=== PATIENT | female | born 1950 | race Caucasian/White ===

== ENCOUNTER 2018-12-19 13:14 | Outpatient (CLI) | payer MEDICARE, OTHER ==
--- NOTE | 2018-12-19 15:04 | MMO ---
Bilateral MAMMO Bilat Screen [facility]. CLINICAL HISTORY: Patient is 68 years old and is seen for screening. The patient has no family history of breast cancer. The patient has no personal history of cancer. VIEWS: The views performed were: bilateral craniocaudal with tomosynthesis and bilateral mediolateral oblique with tomosynthesis. FILMS COMPARED: The present examination has been compared to prior imaging studies performed at [facility] on 10/30/2014, 11/05/2015, 11/10/2016 and 11/11/2017. MAMMOGRAM FINDINGS: There are scattered fibroglandular densities. There are no suspicious masses, suspicious calcifications, or new areas of architectural distortion. IMPRESSION: THERE IS NO MAMMOGRAPHIC EVIDENCE OF MALIGNANCY. A ROUTINE FOLLOW-UP MAMMOGRAM IN 1 YEAR IS RECOMMENDED. THE RESULTS OF THIS EXAM WERE SENT TO THE PATIENT. ACR BI-RADS Category 1 - Negative MAMMOGRAPHY NOTE: 1. A negative mammogram report should not delay a biopsy if a dominant of clinically suspicious mass is present. 2. Approximately 10% to 15% of breast cancers are not detected by mammography. 3. Adenosis and dense breasts may obscure an underlying neoplasm.
--- NOTE | 2018-12-19 15:48 | BD ---
DEXA BONE DENSITY: HISTORY: Postmenopausal female. Screening study. COMPARISON: Prior is not available. FINDINGS: LUMBAR SPINE BMD (g/cm2) T-SCORE Z-SCORE L1 1.056 0.6 2.5 L2 1.293 2.4 4.5 L3 1.529 4.0 6.2 L4 1.357 2.7 4.9 TOTAL 1.315 2.4 4.6 FEMORAL NECK 0.775 -0.7 1.1 TOTAL 0.881 -0.5 1.0 IMPRESSION: 1. Lumbar spine WHO classification is normal. Fracture risk is not increased. 2. Femoral neck WHO classification is normal. Fracture risk is not reported because all T-scores ar e at or above -1.0. POS: OFF
== END 2018-12-19 13:15 | disposition home or self-care (01) ==
LOC: BICMAMMO 13:14
PROVIDERS: ATTEND Specialist
DX: Z12.31 Encounter for screening mammogram for malignant neoplasm of breast (principal); Z13.820 Encounter for screening for osteoporosis; M85.80 Other specified disorders of bone density and structure, unspecified site
CPT/HCPCS: 77063; 77067; 77080

== ENCOUNTER 2019-11-24 08:23 | Outpatient (CLI) | payer MEDICARE, OTHER ==
--- NOTE | 2019-11-24 10:26 | RAD ---
RIGHT ELBOW 4 VIEWS: Date: 11/24/2019 HISTORY: Injury with pain. FINDINGS: No evidence of fracture. No evidence of joint effusion. No osseous abnormality seen. IMPRESSION: No acute findings. POS: CLAUDIOW
--- NOTE | 2019-11-24 10:28 | RAD ---
RIGHT HIP 2 VIEWS: HISTORY: Hip pain. FINDINGS: Femoral head contour is normal. Very mild degenerative change at the hip joint. Joint space appears preserved. No fracture or acute osseous lesion. IMPRESSION: Unremarkable right hip. POS: AGW
== END 2019-11-24 08:24 | disposition home or self-care (01) ==
LOC: SCSRAD 08:23
PROVIDERS: ATTEND Family Medicine
DX: M25.551 Pain in right hip (principal); M25.521 Pain in right elbow
CPT/HCPCS: 36415; 80053; 80061; 84439; 84443; 84481; 86376; 86800

== ENCOUNTER 2019-12-15 16:32 | Emergency (ER) | payer MEDICARE, OTHER | END 2019-12-15 16:50 | disposition home or self-care (01) | LOC: ERS 16:32 | DX: Z20.828 Contact with and (suspected) exposure to other viral communicable diseases (principal); I10 Essential (primary) hypertension | CPT/HCPCS: 99283; U0003; 87635 ==

== ENCOUNTER 2022-01-21 12:50 | Outpatient (CLI) | payer MEDICARE | END 2022-01-21 12:51 | disposition home or self-care (01) | LOC: BICMAMMO 12:50 | PROVIDERS: ATTEND Family Medicine | DX: Z12.31 Encounter for screening mammogram for malignant neoplasm of breast (principal) | CPT/HCPCS: 77063; 77067 ==

== ENCOUNTER 2023-03-02 08:07 | Outpatient (CLI) | payer MEDICARE | END 2023-03-02 08:08 | disposition home or self-care (01) | LOC: BICMAMMO 08:07 | PROVIDERS: ATTEND Family Medicine | DX: Z12.31 Encounter for screening mammogram for malignant neoplasm of breast (principal) | CPT/HCPCS: 77063; 77067 ==

== ENCOUNTER 2024-06-23 09:26 | Outpatient (CLI) | payer MEDICARE ==
[~2024-06-23 09:26] MED LIST: Iopamidol 370 76% 100 ML VIAL ONE
== END 2024-06-23 09:27 | disposition home or self-care (01) ==
LOC: BICCT 09:26
PROVIDERS: ATTEND Physician Assistant Medical
DX: K59.00 Constipation, unspecified (principal); R10.12 Left upper quadrant pain; K76.89 Other specified diseases of liver; K57.30 Diverticulosis of large intestine without perforation or abscess without bleeding; K63.89 Other specified diseases of intestine; I25.10 Atherosclerotic heart disease of native coronary artery without angina pectoris; I70.0 Atherosclerosis of aorta; I70.8 Atherosclerosis of other arteries
CPT/HCPCS: 36415; 74177; 82565